=== PATIENT | male | born 1995 | race Caucasian/White ===

== ENCOUNTER 2017-03-11 11:25 | Outpatient (CLI) | payer OTHER | END 2017-03-11 11:26 | disposition home or self-care (01) | LOC: LAB.WCP 11:25 | PROVIDERS: ATTEND Family Medicine | DX: N45.3 Epididymo-orchitis (principal) | CPT/HCPCS: 87491; 87591 ==

== ENCOUNTER 2020-01-16 13:29 | Outpatient (CLI) | payer OTHER | END 2020-01-16 13:30 | disposition home or self-care (01) | LOC: COV 13:29 | PROVIDERS: ATTEND Family Medicine | DX: R06.02 Shortness of breath (principal); M79.10 Myalgia, unspecified site; R53.83 Other fatigue; Z20.828 Contact with and (suspected) exposure to other viral communicable diseases ==

== ENCOUNTER 2020-06-06 08:00 | Outpatient (CLI) | payer OTHER ==
[2020-06-06 12:42] LABS: BASOPHILS % (AUTO) 0.4 %; EOSINOPHILS % (AUTO) 0.3 %; LYMPHOCYTES # (AUTO) 1.3 10^3/uL (1.5-3.5); MEAN CORPUSCULAR HEMOGLOBIN 31.3 pg (27.0-31.0); MEAN CORPUSCULAR HGB CONC 33.3 g/dL (32.0-36.0); MEAN CORPUSCULAR VOLUME 93.9 fL (80.0-94.0); MEAN PLATELET VOLUME 12.3 fL (7.4-11.4); MONOCYTES # (AUTO) 0.9 10^3/uL (0.0-1.0); MONOCYTES % (AUTO) 13.3 %; NEUTROPHILS # (AUTO) 4.7 10^3/uL (1.5-6.6); NEUTROPHILS % (AUTO) 66.7 %; PLT - PLATELET COUNT 176 10^3/uL (130-450); RED BLOOD COUNT 5.12 10^6/uL (4.70-6.10); RED CELL DISTRIBUTION WIDTH 12.1 % (12.0-15.0)
== END 2020-06-06 23:59 | disposition home or self-care (01) ==
LOC: LAB.WCP 08:00
PROVIDERS: ATTEND Family Medicine
DX: Z11.1 Encounter for screening for respiratory tuberculosis (principal)
CPT/HCPCS: 36415; 81599; 85025; 86480

== ENCOUNTER 2020-11-07 22:59 | Emergency (ER) | payer OTHER ==
--- OUTSIDE RECORDS SUMMARY | 2020-11-07 23:03 | EXTERNAL MEDICAL SUMMARY RPT | Continuity of Care Document ---
:1995 Demographics Phone Unavailable Preferred Language Algerian Marital Status Unknown Yazidism Affiliation Unknown Race Unknown Ethnic Group Unknown Author Organization [address] [place] [address] Phone Care Team Providers Name Role Phone Massiel Unavailable Unavailable Massiel Unavailable Unavailable Problems date description facility 20201007 Unspecified urinary incontinence [facility] 20201007 Testicular pain, unspecified [facility] 20201007 Right testicular pain [facility] [id number] Left testicular pain [facility] [id number] Epididymitis [facility] Procedures date description facility 20201002 [facility] Vital Signs date measurement value source 20201002 weight_standard 176 lb 20201002 weight_metric 79.83 kg 20201002 height_standard 72 in 20201002 height_metric 182.88 cm [id number] heart_rate 88 /min [id number] BP_systolic 110 mm[Hg] 30249536 BP_diastolic 70 mm[Hg] [id number] BMI 23.8 kg/m2
--- OUTSIDE RECORDS SUMMARY | 2020-11-07 23:07 | EXTERNAL MEDICAL SUMMARY RPT | Continuity of Care Document ---
:1995 Demographics Phone Unavailable Preferred Language Vietnamese Marital Status Unknown Adventism Affiliation Unknown Race Unknown Ethnic Group Unknown Author Organization [place] Address [address] [place] [address] Phone Care Team Providers Name Role Phone Massiel Unavailable Unavailable Massiel Unavailable Unavailable Problems date description facility 20201007 Unspecified urinary incontinence [facility] 20201007 Testicular pain, unspecified [facility] 20201007 Right testicular pain [facility] [id number] Left testicular pain [facility] [id number] Epididymitis [facility] Procedures date description facility 20201002 [facility] Vital Signs date measurement value source 20201002 weight_standard 176 lb 20201002 weight_metric 79.83 kg 20201002 height_standard 72 in 20201002 height_metric 182.88 cm [id number] heart_rate 88 /min 94041258 BP_systolic 110 mm[Hg] 25044389 BP_diastolic 70 mm[Hg] 21620098 BMI 23.8 kg/m2
[2020-11-07 23:38] LABS: BASOPHILS # (AUTO) 0.1 10^3/uL (0.0-0.1); BASOPHILS % (AUTO) 0.5 %; EOSINOPHILS # (AUTO) 0.1 10^3/uL (0.0-0.7); EOSINOPHILS % (AUTO) 1.1 %; HCT - HEMATOCRIT 44.9 % (42.0-52.0); HGB - HEMOGLOBIN 15.3 g/dL (14.0-18.0); LYMPHOCYTES # (AUTO) 3.9 10^3/uL (1.5-3.5); LYMPHOCYTES % (AUTO) 38.4 %; MEAN CORPUSCULAR HEMOGLOBIN 31.2 pg (27.0-31.0); MEAN CORPUSCULAR HGB CONC 34.1 g/dL (32.0-36.0); MEAN CORPUSCULAR VOLUME 91.6 fL (80.0-94.0); MONOCYTES # (AUTO) 0.7 10^3/uL (0.0-1.0); MONOCYTES % (AUTO) 6.4 %; NEUTROPHILS # (AUTO) 5.4 10^3/uL (1.5-6.6); NEUTROPHILS % (AUTO) 53.2 %; PLT - PLATELET COUNT 194 10^3/uL (130-450); RED CELL DISTRIBUTION WIDTH 12.4 % (12.0-15.0); WHITE BLOOD COUNT 10.2 x10^3/uL (4.8-10.8)
[2020-11-07] MEDS ORDERED: SODIUM CHLORIDE 0.9% 1,000 ML IV STA (23:48)
--- NOTE | 2020-11-07 23:57 | ED Physician Documentation ---
PD HPI SYNCOPE - Stated complaint Stated Complaint: SYNCOPE - Chief complaint Chief Complaint: Neuro - History obtained from History obtained from: Patient, Family - History of Present Illness Witnessed: Witnessed Timing - onset: Today Duration: Seconds (10) Preceding symptoms: None Associated symptoms: No: Incontinant of urine, Incontinant of stool, Headache, Vision changes Contributing factors: Decreased PO intake, Just stood up, Other (had a cyst removed from his back today. Had sharp pain prior to syncope) Injury occurred: None. No: Head injury, Bit tongue Similar symptoms before: Has not had sx before Recently seen: Surgery - Additional information Additional information: Previously well 25-year-old male has had a procedure to remove a cyst from his back earlier in the day today and this evening he was on his way to the bedroom and collapsed. He does not recall the collapse and his noted that he may have had a brief seizure and was back to in about 10 seconds. The patient has amnesia for the event. He did not bite his tongue he did not lose his urine. He indicates that he has had a slightly reduced intake of fluids today but not f ar off from normal.He has never had syncope previously and did not feel ill prior to this event.He felt that most of the events of the day today were similar to what he has done previously and recalls that he did have a little bit of marijuana prior to going to the bedroom. Review of Systems Constitutional: denies: Fever Eyes: denies: Decreased vision Ears: denies: Ear pain Nose: denies: Congestion Throat: denies: Sore throat Cardiac: denies: Chest pain / pressure, Palpitations Respiratory: denies: Dyspnea, Cough GI: denies: Nausea, Vomiting, Diarrhea : denies: Dysuria, Frequency Skin: reports: Other (surgical site to the back). denies: Rash Musculoskeletal: reports: Back pain. denies: Neck pain, Extremity pain Neurologic: reports: Seizure. denies: Generalized weakness, Focal weakness, Numbness, Difficulty speaking, Altered mental status PD PAST MEDICAL HISTORY - Past Medical History Past Medical History: No - Past Surgical History Past Surgical History: Yes - Present Medications Home Medications: Ambulatory Orders Medication Instructions Recorded Confirmed No Known Home Medications 11/07/20 11/07/20 - Allergies Allergies/Adverse Reactions: Allergies Allergy/AdvReac Type Severity Reaction Status Date / Time amoxicillin Allergy Unknown Verified 11/07/20 23:11 Penicillins Allergy Unknown Verified 11/07/20 23:11 - Social History Does the pt smoke?: No Smoking Status: Never smoker Does the pt drink ETOH?: No Does the pt have substance abuse?: Yes Substance Use and Type: Marijuana - Immunizations Immunizations are current?: Yes PD ED PE NORMAL - Vitals Vital signs reviewed: Yes (Tachycardiac and hypertensive) - General General: Alert and oriented X 3, No acute distress, Well developed/nourished - HEENT HEENT: Atraumatic, PERRL, EOMI - Neck Neck: Supple, no meningeal sign, No bony TTP - Cardiac Cardiac: No murmur, Other (tachy to 110) - Respiratory Respiratory: No respiratory distress, Clear bilaterally - Abdomen Abdomen: Normal bowel sounds, Soft, Non tender, Non distended, No organomegaly - Back Back: No CVA TTP, No spinal TTP, Other (There is a bandage to the mid thoracic spine area without surrounding erythema, swelling or tenderness. ) - Extremities Extremities: No deformity, No tenderness to palpate, Normal ROM s pain, No edema, No calf tenderness / cord - Neuro Neuro: Alert and oriented X 3, wet process head miller 2-12 intact, No motor deficit, No sensory deficit, Normal speech Eye Opening: Spontaneous Motor: Obeys Commands Verbal: Oriented GCS Score: 15 - Psych Psych: Normal mood, Normal affect Results - Vitals Vitals: Vital Signs - 24 hr 11/07/20 11/08/20 11/08/20 23:00 00:19 00:24 Temperature 36.2 C L 37.2 C Heart Rate 129 H 70 79 Respiratory 16 16 16 Rate Blood Pressure 144/89 H 116/71 116/71 O2 Saturation 98 98 99 11/08/20 11/08/20 11/08/20 01:11 02:00 02:40 Temperature 37.1 C 36.6 C Heart Rate 68 74 83 Respiratory 12 15 16 Rate Blood Pressure 100/64 103/62 110/68 O2 Saturation 97 98 100 Oxygen O2 Source Room air - EKG (time done) 2308 Rate: Rate (enter#) (137) Rhythm: Sinus tachycardia, SOHA Ischemia: Q waves Compare to prior EKG: Old EKG unavailable Computer interpretation: Agree with computer - Labs Labs: Laboratory Tests 11/07/20 11/07/20 11/07/20 23:25 23:25 23:25 WBC 10.2 RBC 4.90 Hgb 15.3 Hct 44.9 MCV 91.6 MCH 31.2 H MCHC 34.1 RDW 12.4 Plt Count 194 MPV 12.0 H Neut # (Auto) 5.4 Lymph # (Auto) 3.9 H Rankin # (Auto) 0.7 Eos # (Auto) 0.1 Baso # (Auto) 0.1 Absolute Nucleated RBC 0.00 Nucleated RBC % 0.0 D-Dimer Sodium 141 Potassium 3.6 Chloride 104 Carbon Dioxide 24 Anion Gap 13.0 BUN 15 Creatinine 1.0 Estimated GFR (MDRD) 92 Glucose 136 H Calcium 9.9 Total Bilirubin 1.0 AST 17 ALT 17 Alkaline Phosphatase 55 Troponin I High Sens 2.4 Total Protein 7.5 Albumin 5.2 Globulin 2.3 Albumin/Globulin Ratio 2.3 H Lipase 23 TSH 11/07/20 11/08/20 23:25 23:25 WBC RBC Hgb Hct MCV MCH MCHC RDW Plt Count MPV Neut # (Auto) Lymph # (Auto) Rank[place] # (Auto) Eos # (Auto) Baso # (Auto) Absolute Nucleated RBC Nucleated RBC % D-Dimer < 200.0 L Sodium Potassium Chloride Carbon Dioxide Anion Gap BUN Creatinine Estimated GFR (MDRD) Glucose Calcium Total Bilirubin AST ALT Alkaline Phosphatase Troponin I High Sens Total Protein Albumin Globulin Albumin/Globulin Ratio Lipase TSH 4.57 Procedures - IVC sono (time) 2352 Bedside IVC sono: IVC measures (cm) (1.24), IVC collapsed c insp (cm) (complete), Dehydration (est 1 liter deficit) PD MEDICAL DECISION MAKING - ED course Complexity details: reviewed results, re-evaluated patient, considered differential, d/w patient ED course: 25-year-old male with a syncopal episode is found to be mildly dehydrated on interrogation the inferior vena cava and he is administered saline and improves. He arrives to the emergency department with a heart rate of 134 in triage and he has a heart rate of 110 sitting up in the bed prior to administration of intravenous fluid. Following that he has a reduction in his heart rate into the upper 70s range and feels well. I suspect portion of his syncopal episode may be related to his dehydration. I was not able to elicit a specific history for the pain in the patient's back leading to a sudden syncopal episode. He related the pain is a 2 out of 10. Departure - Departure Disposition: 01 Home, Self Care Clinical Impression: Dehydration Syncope Qualifiers: Syncope type: unspecified Qualified Code(s): R55 - Syncope and collapse Condition: Stable Instructions: ED Dehydration, ED Syncope Vasovagal Follow-Up: [facility] [Provider Group] Discharge Date/Time: 11/08/20 02:45
[2020-11-08 00:01] LABS: ALBUMIN 5.2 g/dL (3.2-5.5); ALBUMIN/GLOBULIN RATIO 2.3 (1.0-2.2); CALCIUM 9.9 mg/dL (8.5-10.3); POTASSIUM 3.6 mmol/L (3.5-5.0); TOTAL PROTEIN 7.5 g/dL (6.7-8.2)
[2020-11-08 02:44] VITALS: BP 110/68
== END 2020-11-08 02:45 | disposition home or self-care (01) ==
LOC: ED 22:59
DX: E86.0 Dehydration (principal); R55 Syncope and collapse; R00.0 Tachycardia, unspecified; M54.9 Dorsalgia, unspecified; Z98.890 Other specified postprocedural states
CPT/HCPCS: 36415; 80053; 83690; 84443; 84484; 85025; 85379; 93005; 96360; 99284

== ENCOUNTER 2020-11-14 00:34 | Emergency (ER) | payer OTHER ==
--- OUTSIDE RECORDS SUMMARY | 2020-11-14 00:38 | EXTERNAL MEDICAL SUMMARY RPT | Continuity of Care Document ---
:1995 Demographics Phone Unavailable Preferred Language Upper Sorbian Marital Status Unknown Amish Affiliation Unknown Race Unknown Ethnic Group Unknown Author Organization [place] [address] [place] [address] Phone Care Team Providers Name Role Phone Massiel Unavailable Unavailable Massiel Unavailable Unavailable Problems date description facility 20201007 Unspecified urinary incontinence [facility] 20201007 Testicular pain, unspecified [facility] 20201007 Right testicular pain [facility] [id number] Left testicular pain [facility] [id number] Epididymitis [facility] Procedures date description facility 20201002 [facility] Vital Signs date measurement value source 20201002 weight_standard 176 lb 20201002 weight_metric 79.83 kg 20201002 height_standard 72 in 20201002 height_metric 182.88 cm [id number] heart_rate 88 /min 56357631 BP_systolic 110 mm[Hg] 91319258 BP_diastolic 70 mm[Hg] 63832935 BMI 23.8 kg/m2
[2020-11-14] MEDS ORDERED: SODIUM CHLORIDE 0.9% 1,000 ML IV STA (00:39)
--- OUTSIDE RECORDS SUMMARY | 2020-11-14 00:40 | EXTERNAL MEDICAL SUMMARY RPT | Continuity of Care Document ---
:1995 Demographics Phone Unavailable Preferred Language Setswana Marital Status Unknown Orthodox Affiliation Unknown Race Unknown Ethnic Group Unknown Author Organization [place] Address [address] [place] [address] Phone Care Team Providers Name Role Phone Massiel Unavailable Unavailable Massiel Unavailable Unavailable Problems date description facility 20201007 Unspecified urinary incontinence [facility] 20201007 Testicular pain, unspecified [facility] 20201007 Right testicular pain [facility] [id number] Left testicular pain [facility] [id number] Epididymitis [facility] Procedures date description facility 20201002 [facility] Vital Signs date measurement value source 20201002 weight_standard 176 lb 20201002 weight_metric 79.83 kg 20201002 height_standard 72 in 20201002 height_metric 182.88 cm 26679637 heart_rate 88 /min 12661146 BP_systolic 110 mm[Hg] 38028527 BP_diastolic 70 mm[Hg] 82376007 BMI 23.8 kg/m2
[2020-11-14 00:54] LABS: BASOPHILS % (AUTO) 0.4 %; EOSINOPHILS # (AUTO) 0.1 10^3/uL (0.0-0.7); HCT - HEMATOCRIT 44.1 % (42.0-52.0); HGB - HEMOGLOBIN 14.8 g/dL (14.0-18.0); LYMPHOCYTES # (AUTO) 3.4 10^3/uL (1.5-3.5); LYMPHOCYTES % (AUTO) 36.6 %; MEAN CORPUSCULAR HEMOGLOBIN 31.4 pg (27.0-31.0); MEAN CORPUSCULAR HGB CONC 33.6 g/dL (32.0-36.0); MEAN CORPUSCULAR VOLUME 93.4 fL (80.0-94.0); MEAN PLATELET VOLUME 11.7 fL (7.4-11.4); MONOCYTES # (AUTO) 0.5 10^3/uL (0.0-1.0); MONOCYTES % (AUTO) 5.3 %; NEUTROPHILS # (AUTO) 5.2 10^3/uL (1.5-6.6); NEUTROPHILS % (AUTO) 56.4 %; PLT - PLATELET COUNT 192 10^3/uL (130-450); RED BLOOD COUNT 4.72 10^6/uL (4.70-6.10); RED CELL DISTRIBUTION WIDTH 12.2 % (12.0-15.0); WHITE BLOOD COUNT 9.2 x10^3/uL (4.8-10.8)
[2020-11-14 01:11] LABS: ALBUMIN/GLOBULIN RATIO 1.9 (1.0-2.2); BILIRUBIN,TOTAL 0.8 mg/dL (0.2-1.0); CALCIUM 9.5 mg/dL (8.5-10.3); POTASSIUM 3.6 mmol/L (3.5-5.0); TOTAL PROTEIN 7.6 g/dL (6.7-8.2)
--- NOTE | 2020-11-14 01:29 | ED Physician Documentation ---
History of Present Illness - Stated complaint Stated Complaint: LOSS OF CONSCIENCE, SHAKES - Chief complaint Chief Complaint: Trauma Ext - History obtained from History obtained from: Patient - Additonal information Additional information: Patient comes emergency department with chief complaint of syncopal episode at home after getting up to use the restroom. Patient states he had been in bed and got up to urinate. After he was done, he noticed to start and felt quite lightheaded, so he sat down on the toilet to try to gain his bearings. However, the next thing he knew, he was waking up on the floor. He does have a recollection of the fainting episode, But states that his left shoulder was hurting when he woke up and he thought that he had probably had it on his daughter's stepstool. He states that it is tender to the touch and he cannot move it fully because of the pain. He denies chest pain or shortness of breath. He states that he did feel his respiratory rate speeding up a little bit prior to the fainting episode. Patient states that he has not been feeling ill today but has felt slightly "off". He denies feeling poorly over the last few days. Patient states that he was seen in the emergency department about 6 and half days ago after having a cyst removed from his mid back. The patient had had a syncopal episode at that time and was worked up fully and work-up was negative. Patient states that after discharge from that visit, he had a fairly uneventful course until today. The patient is not on any new medications. He is otherwise healthy. He had a superficial cyst surgically removed from his mid upper back about a week ago, and wonders if this has anything to do with the symptoms. Review of Systems Ten Systems: 10 systems reviewed and negative Constitutional: reports: Reviewed and negative Eyes: reports: Reviewed and negative Ears: reports: Reviewed and negative Nose: reports: Reviewed and negative Throat: reports: Reviewed and negative Cardiac: reports: Reviewed and negative. denies: Chest pain / pressure Respiratory: reports: Reviewed and negative. denies: Dyspnea GI: reports: Reviewed and negative : reports: Reviewed and negative Skin: reports: Reviewed and negative Musculoskeletal: reports: Reviewed and negative Neurologic: reports: Syncope. denies: Headache, Head injury Psychiatric: reports: Reviewed and negative Endocrine: reports: Reviewed and negative Immunocompromised: reports: Reviewed and negative PD PAST MEDICAL HISTORY - Past Medical History Past Medical History: No - Past Surgical History Past Surgical History: Yes - Present Medications Home Medications: Ambulatory Orders Medication Instructions Recorded Confirmed No Known Home Medications 11/07/20 11/14/20 - Allergies Allergies/Adverse Reactions: Allergies Allergy/AdvReac Type Severity Reaction Status Date / Time amoxicillin Allergy Unknown Verified 11/14/20 00:40 Penicillins Allergy Unknown Verified 11/14/20 00:40 - Social History Does the pt smoke?: No Smoking Status: Never smoker Does the pt drink ETOH?: No Does the pt have substance abuse?: Yes - Immunizations Immunizations are current?: Yes - POLST Patient has POLST: No PD ED PE NORMAL - Vitals Vital signs reviewed: Yes - General General: Alert and oriented X 3, No acute distress, Well developed/nourished - HEENT HEENT: Atraumatic, PERRL, EOMI, Moist mucous membranes - Neck Neck: Supple, no meningeal sign - Cardiac Cardiac: RRR, No murmur, Strong equal pulses - Respiratory Respiratory: No respiratory distress, Clear bilaterally - Abdomen Abdomen: Soft, Non tender, Non distended - Back Back: No CVA TTP, No spinal TTP, Other (Dressing over midline mid upper back, appears clean dry and intact.) - Derm Derm: Warm and dry - Extremities Extremities: No deformity, Other (2 linear, horizontal, contusions with superficial abrasion noted over the left deltoid. Range of motion L shoulder limited moderately, secondary to pain. No edema.) - Neuro Neuro: Alert and oriented X 3 - Psych Psych: Normal mood, Normal affect Results - Vitals Vitals: Vital Signs - 24 hr 11/14/20 11/14/20 11/14/20 00:35 01:42 02:15 Temperature 36 C L 36.4 C L Heart Rate 122 H 77 Heart Rate [ 97 Sitting] Heart Rate [ 94 Standing] Heart Rate [ 78 Supine] Respiratory 16 16 Rate Blood Pressure 135/77 H 113/64 Blood Pressure 115/67 [Sitting] Blood Pressure 113/64 [Standing] Blood Pressure 117/64 [Supine] O2 Saturation 99 99 Oxygen O2 Source Room air - EKG (time done) 0054 Rate: Rate (enter#) (92) Rhythm: NSR [place]: Normal Intervals: Normal WI QRS: Normal Ischemia: Normal ST segments. No: T wave inversion Compare to prior EKG: Old EKG unavailable Computer interpretation: Agree with computer - Labs Labs: Laboratory Tests 11/14/20 11/14/20 11/14/20 00:47 00:50 00:50 WBC 9.2 RBC 4.72 Hgb 14.8 Hct 44.1 MCV 93.4 MCH 31.4 H MCHC 33.6 RDW 12.2 Plt Count 192 MPV 11.7 H Neut # (Auto) 5.2 Lymph # (Auto) 3.4 [place] # (Auto) 0.5 Eos # (Auto) 0.1 Baso # (Auto) 0.0 Absolute Nucleated RBC 0.00 Nucleated RBC % 0.0 Sodium 140 Potassium 3.6 Chloride 103 Carbon Dioxide 26 Anion Gap 11.0 BUN 10 Creatinine 1.0 Estimated GFR (MDRD) 92 Glucose 126 H POC Whole Bld Glucose 122 H Calcium 9.5 Total Bilirubin 0.8 AST 16 ALT 15 Alkaline Phosphatase 51 Troponin I High Sens Total Protein 7.6 Albumin 5.0 Globulin 2.6 Albumin/Globulin Ratio 1.9 Lipase 27 11/14/20 00:50 WBC RBC Hgb Hct MCV MCH MCHC RDW Plt Count MPV Neut # (Auto) Lymph # (Auto) [place] # (Auto) Eos # (Auto) Baso # (Auto) Absolute Nucleated RBC Nucleated RBC % Sodium Potassium Chloride Carbon Dioxide Anion Gap BUN Creatinine Estimated GFR (MDRD) Glucose POC Whole Bld Glucose Calcium Total Bilirubin AST ALT Alkaline Phosphatase Troponin I High Sens 2.7 Total Protein Albumin Globulin Albumin/Globulin Ratio Lipase - Rads (name of study) L shoulder XR Radiology: Final report received, EMP read indepedently, See rad report (neg) PD MEDICAL DECISION MAKING - ED course Complexity details: re-evaluated patient, considered differential, d/w patient ED course: I discussed with the patient that he had a fairly full work-up last time he was here, and that while we will repeat most of the elements of that work-up, we need to have a plan, As patient will most likely need further evaluation as an outpatient. The patient's work-up was unremarkable here, including L shoulder x-ray,labs, EKG, and cardiac monitoring. His initial heart rate was tachycardic, but patient did not have any further episodes of tachycardia, and in fact, orthostatic vital signs were fairly unremarkable. I discussed with the patient that one of the most helpful things in evaluating symptoms such as his is the wearing of an event monitor. I have asked him to talk to his primary care physician about getting set up to wear one. We have also discussed that cardiology follow-up may be helpful to shed light on potential causes for the fainting, and patient is to talk to his PCP about this as well. We have discussed the usual indications for return. Departure - Departure Disposition: 01 Home, Self Care Clinical Impression: Syncope and collapse, Contusion, shoulder /upper arm Condition: Stable Instructions: ED Fainting Unkn Cause Comments: Your labs and EKG continue to look good, and your vital signs for the most part are normal. You have been noted to have occasional elevations in your heart rate mildly above normal, despite being well hydrated. This Could be related to a number of potential causes, but may hint the underlying cause of the 2 fainting episodes you have had. Given that you do not have a history of fainting previously or easily, is entirely possible that these 2 episodes that you have had are incidental, and that you will not have any further fainting episodes. However, if you continue to have the episodes, it is very important to get checked out with further work-up as an outpatient. As we discussed, wearing an event monitor is one way to help troubleshoot fainting that happens without apparent cause, and you can talk to your primary care physician about wearing the monitor. If the fainting episodes continue, cardiology follow-up is also helpful to help sort out what exactly is going wrong and causing you to faint. Please speak with your primary care physician about this as well. As we have discussed, it is recommended that you call your primary care physician's office first thing this morning and set up an appointment for follow-up, preferably not more than 4 days from now. Discharge Date/Time: 11/14/20 02:23
[2020-11-14 02:23] VITALS: BP 113/64
--- NOTE | 2020-11-14 08:58 | XRAY Report ---
PROCEDURE: Shoulder 3 View LT INDICATIONS: syncope/fall/injury TECHNIQUE: 3 views of the shoulder were acquired. COMPARISON: None. FINDINGS: Bones: No fractures or dislocations. No suspicious bony lesions. Visualized ribs appear intact. Soft tissues: No suspicious soft tissue calcifications. IMPRESSION: No fracture. No osseous lesion. If there are persistent symptoms or continued clinical concern for pa thology, then repeat plain film radiographs (7-10 days) or advanced imaging (CT, MR, bone scan) shoul d be considered for further evaluation. Reviewed by: Catalina Pearson MD, PhD on 11/14/2020 8:57 AM PDT Approved by: Catalina Pearson MD, PhD on 11/14/2020 8:57 AM PDT Station ID: [id number]
== END 2020-11-14 02:23 | disposition home or self-care (01) ==
LOC: ED 00:34
DX: R55 Syncope and collapse (principal); S40.012A Contusion of left shoulder, initial encounter; S40.212A Abrasion of left shoulder, initial encounter; W18.12XA Fall from or off toilet with subsequent striking against object, initial encounter; Y92.002 Bathroom of unspecified non-institutional (private) residence as the place of occurrence of the external cause; R00.0 Tachycardia, unspecified
CPT/HCPCS: 36415; 80053; 83690; 84484; 85025; 93005; 96360; 99283

== ENCOUNTER 2022-10-13 09:38 | Outpatient (CLI) | payer OTHER ==
--- NOTE | 2022-10-13 12:51 | XRAY Report ---
PROCEDURE: Chest 2 View X-Ray INDICATIONS: CHEST PAIN, LEFT TECHNIQUE: 2 views of the chest were acquired. COMPARISON: None. FINDINGS: Surgical changes and devices: None. Lungs and pleura: No pleural effusions or pneumothorax. Lungs are clear. Mediastinum: Mediastinal contours appear normal. Heart size is normal. Bones and chest wall: No suspicious bony lesions. Overlying soft tissues appear unremarkable. IMPRESSION: No acute cardiopulmonary process. Reviewed by: Tomas Hernandez MD on 10/13/2022 12:50 PM PDT Approved by: Tomas Hernandez MD on 10/13/2022 12:50 PM PDT Station ID: [id number]
== END 2022-10-13 09:39 | disposition home or self-care (01) ==
LOC: DI 09:38
PROVIDERS: ATTEND Physician Assistant Medical
DX: R07.89 Other chest pain (principal)

== ENCOUNTER 2023-10-05 14:16 | Outpatient (CLI) | payer OTHER ==
--- NOTE | 2023-10-05 19:57 | XRAY Report ---
PROCEDURE: Elbow 1-2V RT INDICATIONS: CONTUSION OF RIGHT ELBOW TECHNIQUE: 2 views of the elbow were acquired. COMPARISON: None. FINDINGS: Bones: No acute fractures or dislocations. No suspicious bony lesions. Soft tissues: No effusion. No suspicious soft tissue calcifications or masses. IMPRESSION: No acute osseous abnormality. If there is clinical concern or persistent symptoms, additional imaging such as repeat radiographs or advanced imaging (e.g. CT, MRI) may be helpful for further evaluation. Reviewed by: Tomas Che MD on 10/05/2023 7:56 PM PDT Approved by: Tomas Che MD on 10/05/2023 7:56 PM PDT Station ID: [id number]
== END 2023-10-05 23:59 | disposition home or self-care (01) ==
LOC: DI.N 14:16
PROVIDERS: ATTEND Family Medicine
DX: S50.01XA Contusion of right elbow, initial encounter (principal)